=== PATIENT | female | born 1950 | race Caucasian/White ===

== ENCOUNTER 2017-04-25 19:49 | Emergency (ER) | payer OTHER, MEDICARE ==
[~2017-04-25 19:49] MED LIST: ATORVASTATIN CA80 M1 PO; CIPRO500 MG PO; CIPRODEX 0.3%-7.5 M1 OT; FLEXERIL5 MG PO; FLUTICASON0.05 MG/AC NAS; IBU800 M1 PO; LEVO-T75 MCG PO; LEXAPRO10 MG PO; LEXAPRO20 MG PO; LISINOPRIL10 M1 PO; LISINOPRIL20 MG PO; LOPERAMIDE HCL2 MG PO; LOPRESSOR25 MG PO; PREDNISONE10 MG PO; QUESTRAN LIGHT4 GM PO; SYMBICORT1 AE1 INH; SYNTHROID,LEV125 MCG PO; SYNTHROID25 MCG PO; Synthroid,Levo50 MCG PO; XANAX0.25 MG PO
[2017-04-25 20:32] LABS: BASO % 0.2 % (0.0-1.0); EOS % 0.4 % (1.0-4.0); HEMATOCRIT 24.1 % (37.0-47.0); HEMOGLOBIN 8.1 g/dl (12.0-16.0); LYMPH # 0.2 10*3/uL (1.3-4.4); LYMPH % 4.1 % (27.0-41.0); MEAN CELL VOLUME 94.1 fl (81.0-99.0); MEAN CORPUSCULAR HGB 31.6 pg (27.0-31.0); MEAN CORPUSCULAR HGB CONC 33.6 g/dl (33.0-37.0); MEAN PLATELET VOLUME 9.7 fl (9.6-12.3); MONO # 0.4 10*3/uL (0.1-1.0); MONO % 8.8 % (3.0-9.0); NEUT # 4.2 10*3/uL (2.3-7.9); NEUT % 86.1 % (47.0-73.0); PLATELET COUNT AUTOMATED 145 10*3/uL (130-400); RED BLOOD COUNT 2.56 10*6/uL (4.10-5.10); RED CELL DISTRI WIDTH 17.2 % (0-14.5); WHITE BLOOD COUNT 4.9 10*3/uL (4.8-10.8)
[2017-04-25 20:41] LABS: PROTHROMBIN TIME 10.6 SECONDS (9.0-12.4)
[2017-04-25 20:49] LABS: ALBUMIN 2.7 gm/dl (3.1-4.5); ALKALINE PHOSPHATASE 69 U/L (45-117); BILIRUBIN, TOTAL 0.5 mg/dl (0.2-1.0); BUN 19 mg/dl (7-24); CARBON DIOXIDE 24 mmol/L (21-32); CHLORIDE 102 mmol/L (98-107); EST GLOM FILT AFRICAN AMERICAN 53 ml/min; GLUCOSE 105 mg/dL (65-99); MAGNESIUM 1.7 mg/dL (1.5-2.1); POTASSIUM 3.4 mmol/L (3.5-5.1); SGOT/AST 14 IU/L (3-35); SGPT/ALT 8 U/L (12-78); SODIUM 139 mmol/L (136-145); TOTAL PROTEIN 6.5 gm/dL (6.4-8.2)
[2017-04-25 20:51] LABS: TROPONIN I < 0.015 ng/ml (<0.045)
[2017-04-25 21:46] LABS: BILIRUBIN 1+ (NEGATIVE); BLOOD 2+ (NEGATIVE); CLARITY CLOUDY (CLEAR); COLOR YELLOW (YELLOW); GLUCOSE NEGATIVE (NEGATIVE); KETONE NEGATIVE (NEGATIVE); LEUKO ESTERASE 2+ (NEGATIVE); NITRITE NEGATIVE (NEGATIVE); PROTEIN 2+ (NEGATIVE)
[2017-04-25 21:53] LABS: BACTERIA 3+; URINE REFLEX COMMENT YES (NO); WBC 51-100 wbc/hpf (0-5)
[2017-04-25 21:54] LABS: RBC 21-30 rbc/hpf (0-2)
[2017-04-25 22:03] LABS: URINE AMPHETAMINES < 1000 (1000ng/ml); URINE BARBITURATES < 200 (200ng/ml); URINE COCAINE < 300 (300ng/ml)
== END 2017-04-25 23:35 | disposition short-term general hospital (02) ==
LOC: ED 19:49
PROVIDERS: Emergency Medicine Emergency Medical Services
DX: C79.82 Secondary malignant neoplasm of genital organs (principal); C80.1 Malignant (primary) neoplasm, unspecified; Z88.1 Allergy status to other antibiotic agents; F41.9 Anxiety disorder, unspecified; Z86.73 Personal history of transient ischemic attack (TIA), and cerebral infarction without residual deficits; Z86.718 Personal history of other venous thrombosis and embolism; Z90.49 Acquired absence of other specified parts of digestive tract